=== PATIENT | female | born 1950 | race Caucasian/White ===

== ENCOUNTER → 2017-06-14 | Outpatient (CLI) | payer MEDICARE ==
[~2017-06-14] MED LIST: ATOR40TA PO; LOSA50 PO; METO100ER; Metformin HCl750 MG PO; Mobic15 MG PO; PROG100 PO; SPIR50; Synthroid25 MCG PO
[2017-06-16 12:41] LABS: HPV Genotype 16 Not Detected (NOTDET); HPV Genotype 18 Not Detected (NOTDET)
[2017-06-21 08:17] LABS: HPV High Risk Other Not Detected (NOTDET)
== END | disposition home or self-care (01) ==
LOC: OLS 17:10
PROVIDERS: Obstetrics & Gynecology Gynecology
DX: R21 Rash and other nonspecific skin eruption (principal); Z91.89 Other specified personal risk factors, not elsewhere classified
CPT/HCPCS: 87070; 87205; 87624; G0123

== ENCOUNTER → 2018-07-19 | Outpatient (CLI) | payer MEDICARE ==
[2018-07-19 11:28] LABS: Source, Urine Clean Catch
[2018-07-19 12:39] LABS: Bilirubin, Urine Neg (Neg); Blood, Urine Neg (Neg); Glucose Qualitative, Urine Neg (Neg); Ketones, Urine Neg (Neg); Leukocyte Esterase, Urine Neg (Neg); Nitrite, Urine Neg (Neg); Protein, Urine Neg (Neg); Urobilinogen, Urine NORM (Normal)
[2018-07-19 12:57] LABS: Appearance, Urine Cloudy (Clear); Color, Urine Yellow (P-Yellow)
[2018-07-19 12:59] LABS: Amorphous Heavy (0-Heavy); Bacteria Few /hpf; Red Blood Cells, Urine 0-2 /hpf (0-2); Squamous Epithelial Cells Few /hpf (Few); White Blood Cells, Urine 0-2 /hpf (0-5)
[2018-07-19 14:16] LABS: Candida species (DNA Probe) Negative (NEGATIVE); G. vaginalis (DNA Probe) Positive (NEGATIVE); T. vaginalis (DNA Probe) Negative (NEGATIVE)
== END | disposition home or self-care (01) ==
LOC: LAB SHORT 09:30 → LAB 09:30
PROVIDERS: Obstetrics & Gynecology
DX: N76.0 Acute vaginitis (principal); R30.0 Dysuria
CPT/HCPCS: 81001; 87480; 87510; 87660

== ENCOUNTER 2018-12-18 22:29 | Emergency (ER) | payer MEDICARE ==
[~2018-12-18] VITALS: Ht 154.9 cm; Wt 97.5 kg
[2018-12-19] MEDS ORDERED: Zovirax400 MG PO (00:40)
[2018-12-19] MEDS ORDERED: Prednisone20 MG PO (00:40)
== END 2018-12-19 01:02 | disposition home or self-care (01) ==
LOC: ER 22:29
DX: G51.0 Bell's palsy (principal); Z88.8 Allergy status to other drugs, medicaments and biological substances; Z88.1 Allergy status to other antibiotic agents; Z91.048 Other nonmedicinal substance allergy status; Z79.899 Other long term (current) drug therapy; Z79.84 Long term (current) use of oral hypoglycemic drugs; Z79.52 Long term (current) use of systemic steroids; E11.9 Type 2 diabetes mellitus without complications
CPT/HCPCS: 99283; J7512

== ENCOUNTER 2019-03-02 22:02 | Emergency (ER) | payer MEDICARE ==
[~2019-03-02] VITALS: Ht 154.9 cm; Wt 95.2 kg
[~2019-03-02 22:02] MED LIST changes: +Prednisone20 MG PO; +Zovirax400 MG PO
[2019-03-02] MEDS ORDERED: Prednisone20 MG PO (22:45)
== END 2019-03-02 23:00 | disposition home or self-care (01) ==
LOC: ER 22:02
DX: L50.9 Urticaria, unspecified (principal); E78.5 Hyperlipidemia, unspecified; E11.9 Type 2 diabetes mellitus without complications; Z88.8 Allergy status to other drugs, medicaments and biological substances; Z91.048 Other nonmedicinal substance allergy status; Z79.899 Other long term (current) drug therapy; Z79.84 Long term (current) use of oral hypoglycemic drugs; Z79.891 Long term (current) use of opiate analgesic; Z79.52 Long term (current) use of systemic steroids
CPT/HCPCS: 99283; Q0163

== ENCOUNTER → 2020-01-14 | Outpatient (CLI) | payer MEDICARE ==
[2020-01-15 06:17] LABS: Candida species (DNA Probe) Negative (NEGATIVE); G. vaginalis (DNA Probe) Positive (NEGATIVE); T. vaginalis (DNA Probe) Negative (NEGATIVE)
== END | disposition home or self-care (01) ==
LOC: LAB SHORT 15:00 → LAB 15:00
PROVIDERS: Obstetrics & Gynecology
DX: N76.0 Acute vaginitis (principal)
CPT/HCPCS: 87480; 87510; 87660

== ENCOUNTER → 2020-10-06 | Outpatient (CLI) | payer MEDICARE | LOC: LAB SHORT 11:06 → LAB 11:06 | DX: D48.5 Neoplasm of uncertain behavior of skin (principal); L57.0 Actinic keratosis; Z88.6 Allergy status to analgesic agent; Z88.8 Allergy status to other drugs, medicaments and biological substances; Z88.1 Allergy status to other antibiotic agents | CPT/HCPCS: 88305; 88312 ==

== ENCOUNTER → 2021-02-11 | Outpatient (CLI) | payer MEDICARE ==
[2021-02-11 14:01] LABS: Free Thyroxine 1.05 ng/dL (0.70-1.60); Thyroid Stimulating Hormone 1.878 uIU/mL (0.360-4.800)
== END ==
LOC: LAB SHORT 13:07 → LAB 13:07
PROVIDERS: Family Medicine
DX: E03.4 Atrophy of thyroid (acquired) (principal)
CPT/HCPCS: 84439; 84443

== ENCOUNTER → 2021-05-06 | Outpatient (CLI) | payer MEDICARE ==
[2021-05-07 10:02] LABS: Candida species (DNA Probe) Negative (NEGATIVE); G. vaginalis (DNA Probe) Negative (NEGATIVE); T. vaginalis (DNA Probe) Negative (NEGATIVE)
== END | disposition home or self-care (01) ==
LOC: LAB SHORT 12:59
PROVIDERS: Obstetrics & Gynecology
DX: N89.8 Other specified noninflammatory disorders of vagina (principal)
CPT/HCPCS: 87480; 87510; 87660

== ENCOUNTER 2023-02-24 16:49 | Emergency (ER) | payer OTHER, MEDICARE ==
[~2023-02-24] VITALS: Ht 154.9 cm; Wt 90.3 kg
[2023-02-24 17:22] LABS: BASOPHILS ABSOLUTE AUTO 0.04 K/mm3 (0.00-0.23); BASOPHILS PERCENT AUTO 1 % (0-2); EOSINOPHILS ABSOLUTE AUTO 0.06 K/mm3 (0.00-0.68); EOSINOPHILS PERCENT AUTO 1 % (0-6); Hemoglobin 14.4 g/dL (11.5-16.0); IMMATURE GRAN ABSOLUTE AUTO 0.01 K/mm3 (0.00-0.10); IMMATURE GRAN PERCENT AUTO 0 % (0-1); LYMPHOCYTES ABSOLUTE AUTO 3.28 K/mm3 (0.84-5.20); LYMPHOCYTES PERCENT AUTO 41 % (21-46); MONOCYTES ABSOLUTE AUTO 0.47 K/mm3 (0.16-1.47); MONOCYTES PERCENT AUTO 6 % (4-13); Mean Corpuscular HGB 30.7 pg (26.0-34.0); Mean Corpuscular HGB Conc 34.3 g/dL (31.5-36.5); Mean Corpuscular Volume 90 fL (80-100); Mean Platelet Volume 9.9 fL (9.1-12.4); NEUTROPHILS ABSOLUTE AUTO 4.06 K/mm3 (1.96-9.15); NEUTROPHILS PERCENT AUTO 51 % (41-73); Platelet Count 311 K/mm3 (150-400); RDW Standard Deviation 42.6 fL (35.1-46.3); Red Blood Cell Count 4.69 M/mm3 (3.80-5.20); White Blood Cell Count 7.92 K/mm3 (4.00-11.30)
[2023-02-24 17:41] LABS: Magnesium, Blood 1.7 mg/dL (1.6-2.4)
[2023-02-24 17:46] LABS: Albumin/Globulin Ratio 1.2 (0.8-1.8); Bilirubin, Total 0.7 mg/dL (0.1-1.0); Bun/Creatinine Ratio 13.6 (12.0-20.0); Calcium, Blood 9.3 mg/dL (8.5-10.1); Creatinine, Blood 0.88 mg/dL (0.40-1.00); Globulin, Blood 3.3 g/dL (2.2-4.0); Potassium, Blood 4.2 mmol/L (3.5-5.5); Total Protein, Blood 7.3 g/dL (6.4-8.2)
[2023-02-24 19:10] LABS: Influenza A, PCR NEGATIVE (NEGATIVE); Influenza B, PCR NEGATIVE (NEGATIVE); Resp Syncytial Virus, PCR NEGATIVE (NEGATIVE); SARS-Cov-2 (COVID-19) PCR, MMC NEGATIVE (NEGATIVE)
[2023-02-24] MEDS ORDERED: TRAZ50 PO (21:58)
[2023-02-24] MEDS ORDERED: EZETIMIBE10 M6 PO (21:58)
[2023-02-24] MEDS ORDERED: Diflucan150 MG PO (21:59)
[2023-02-24] MEDS ORDERED: VITAMIN D31000 UNI1 PO (22:00)
[2023-02-24] MEDS ORDERED: Aspir 8181 MG PO (22:00)
[2023-02-24] MEDS ORDERED: ESTRADIOL42.5 GM (22:00)
[2023-02-24] MEDS ORDERED: MULVITA PO (22:01)
[2023-02-24 22:30] VITALS: BP 106/78
[2023-02-24] MEDS ORDERED: METO50ER PO (22:32)
== END 2023-02-24 22:39 | disposition home or self-care (01) ==
LOC: ER 16:49
PROVIDERS: Physician Assistant; Student in an Organized Health Care Education/Training Program
DX: I47.19 Other supraventricular tachycardia (principal); E78.5 Hyperlipidemia, unspecified; E11.9 Type 2 diabetes mellitus without complications; R53.83 Other fatigue; R42 Dizziness and giddiness; K30 Functional dyspepsia; Z88.8 Allergy status to other drugs, medicaments and biological substances; Z88.1 Allergy status to other antibiotic agents; Z79.899 Other long term (current) drug therapy; Z79.84 Long term (current) use of oral hypoglycemic drugs; Z79.85 Long-term (current) use of injectable non-insulin antidiabetic drugs
CPT/HCPCS: 0241U; 71046; 80053; 83735; 83880; 84484; 85025; 93005; 93010; 96361; 96374; 96375; 99284-25; A9270; J0153; J7030

== ENCOUNTER → 2024-11-08 | Outpatient (CLI) | payer OTHER, MEDICARE ==
[~2024-11-08] MED LIST changes: +Aspir 8181 MG PO; +Diflucan150 MG PO; +ESTRADIOL42.5 GM; +EZETIMIBE10 M6 PO; +METO50ER PO; +MULVITA PO; +TRAZ50 PO; +VITAMIN D31000 UNI1 PO
[2024-11-08 17:58] LABS: Bacterial Vaginosis PCR Negative (NEGATIVE); Candida glabrata-krusei, PCR NOT DETECTED (NOT DETECT)
[2024-11-08 18:04] LABS: Candida Group, PCR DETECTED (NOT DETECT)
== END ==
LOC: LAB SHORT 15:58 → LAB 15:58
PROVIDERS: Obstetrics & Gynecology
DX: N76.0 Acute vaginitis (principal)
CPT/HCPCS: 81515